=== PATIENT | male | born 1985 | race Caucasian/White ===

== ENCOUNTER → 2022-05-14 10:33 | Outpatient (CLI) | payer OTHER, SELFPAY ==
--- NOTE | ~2022-05-14 | XR_ITS ---
XR foot RT min 3V DATE: 05/14/2022 11:06 INDICATION: Trauma, pain TECHNIQUE: 4 views COMPARISON: None FINDINGS: There is a minimally displaced linear intra-articular fracture of the lateral base of the f ifth metatarsal bone. No other fracture or dislocation. IMPRESSION: Linear intra-articular fracture of the lateral base of the fifth metatarsal bone Reviewed, dictated and finalized at location B. IMPRESSION: Linear intra-articular fracture of the lateral base of the fifth me tatarsal bone
--- NOTE | ~2022-05-14 | XR_ITS ---
XR foot LT min 3V DATE: 05/14/2022 11:06 INDICATION: Trauma, pain TECHNIQUE: 4 views COMPARISON: None FINDINGS: There is a linear oblique fracture of the distal shaft and neck of the left fifth metatarsa l bone. There is up to one cortical width posteromedial displacement. No other fracture or dislocation. IMPRESSION: Fifth metatarsal distal shaft and neck fracture Reviewed, dictated and finalized at location B.
== END ==
PROVIDERS: PCP Family Medicine Adolescent Medicine; Visit Provider Physician Assistant
DX: S92.351A Displaced fracture of fifth metatarsal bone, right foot, initial encounter for closed fracture (principal); S92.352A Displaced fracture of fifth metatarsal bone, left foot, initial encounter for closed fracture
CPT/HCPCS: 73630